=== PATIENT | female | born 2000 | race Caucasian/White ===

== ENCOUNTER 2019-06-12 12:15 | Emergency (ER) | payer BC ==
[2019-06-12 12:32] VITALS: BP 118/82
--- NOTE | 2019-06-12 12:55 | UC ---
Throat Pain/Nasal Gt HPI - HPI Summary HPI Summary: sore throat x 3 days pain is 4 out of 10 , worse with eating , better with rest, Tylenol + bilateral ear pain , nasal congestion , dry cough no fever, no chills - History of Current Complaint Chief Complaint: UCGeneralIllness Stated Complaint: SORE THROAT BILATERAL EAR Time Seen by Provider: 06/12/19 12:29 Hx Obtained From: Patient Hx Last Menstrual Period: 05/2019 ?: No Onset/Duration: Gradual Onset, Lasting Days - 3, Still Present Severity: Moderate Pain Intensity: 4 Cough: Nonproductive Associated Signs & Symptoms: Positive: Nasal Discharge. Negative: Dysphagia, FB Sensation, Drooling, Wheezing, Hoarseness, Sinus Discomfort, Fever, Vomiting , Rash - Allergies/Home Medications Allergies/Adverse Reactions: Allergies Allergy/AdvReac Type Severity Reaction Status Date / Time No Known Allergies Allergy Verified 06/12/19 12:29 Home Medications: Home Medications Control Pill 1 tab PO DAILY 06/12/19 [History Confirmed 06/12/19] Multivitamin [Multiple Vitamins] 1 each PO DAILY 06/12/19 [History Confirmed 07/21] metFORMIN* [Glucophage 500 MG TAB *] 500 mg PO BID 06/12/19 [History Confirmed 06/12/19] PMH/Surg Hx/FS Hx/Imm Hx Previously Healthy: Yes - Surgical History Surgical History: Yes Surgery Procedure, Year, and Place: colonoscopy. endoscopy - Family History Known Family History: Positive: Non-Contributory - Social History Alcohol Use: None Substance Use Type: None Smoking Status (MU): Never Smoked Tobacco Review of Systems All Other Systems Reviewed And Are Negative: Yes Constitutional: Positive: Negative Skin: Positive: Negative Eyes: Positive: Negative ENT: Positive: Sore Throat Respiratory: Positive: Cough Cardiovascular: Positive: Negative Genitourinary: Positive: Negative Motor: Positive: Negative Physical Exam Triage Information Reviewed: Yes Appearance: Well-Appearing, No Pain Distress, Obese Vital Signs: Initial Vital Signs Temp 98.1 F 06/12/19 12:29 Pulse 78 06/12/19 12:29 Resp 16 06/12/19 12:29 BP 118/82 06/12/19 12:29 Pulse Ox 98 06/12/19 12:29 Vital Signs Reviewed: Yes Eye Exam: Normal Eyes: Positive: Conjunctiva Clear ENT: Positive: Normal ENT inspection, Hearing grossly normal, Pharynx normal, Nasal congestion, TMs normal. Negative: Nasal drainage, TM bulging, TM dull, TM red, Tonsillar swelling, Tonsillar exudate Neck: Positive: Supple, Nontender, No Lymphadenopathy Respiratory: Positive: Chest non-tender, Lungs clear, Normal breath sounds Cardiovascular: Positive: RRR, No Murmur, Pulses Normal Abdominal Exam: Normal Abdomen Description: Positive: Nontender, Soft. Negative: CVA Tenderness (R), CVA Tenderness (L), Distended, Guarding Skin Exam: Normal Throat Pain/Nasal Course/Dx - Differential Dx/Diagnosis Provider Diagnosis: URI (upper respiratory infection) Discharge ED - Sign-Out/Discharge Documenting (check all that apply): Patient Departure All imaging exams completed and their final reports reviewed: No Studies - Discharge Plan Condition: Stable Disposition: HOME Patient Education Materials: Upper Respiratory Infection (DC) Forms: *School Release Referrals: Non Staff,Doctor [Primary Care Provider] - If Needed - Billing Disposition and Condition Condition: STABLE Disposition: Home
== END 2019-06-12 12:53 | disposition home or self-care (01) ==
LOC: UCCORT 12:15
DX: J06.9 Acute upper respiratory infection, unspecified (principal); H92.03 Otalgia, bilateral
CPT/HCPCS: 87651; 99201; G0463

== ENCOUNTER 2019-07-20 12:00 | Emergency (ER) | payer BC ==
[2019-07-20 12:50] VITALS: BP 108/66
[2019-07-20] MEDS ORDERED: predniSONE TAB* 20 MG PO ONE (12:56)
--- NOTE | 2019-07-20 12:58 | UC ---
Allergic Reaction HPI - HPI Summary HPI Summary: Took rizatriptan yesterday at 1430. Started to have hives on chest around 1700 and arms. This morning not really on chest, but on legs and lower torso. Itching. Denies difficulty breathing. - History of Current Complaint Chief Complaint: UCRash Stated Complaint: ALLERGIC REACTION Time Seen by Provider: 07/20/19 12:43 Hx Obtained From: Patient Hx Last Menstrual Period: 05/2019 Onset/Duration: Sudden Onset, Lasting Days - 1 Severity Initially: Mild Severity Currently: Mild Pain Intensity: 0 Character: Hives Aggravating Factor(s): Heat Alleviating Factor(s): Cold, Antihistamines Associated Signs And Symptoms: Positive: Rash - Related Hx Possible Reaction To: Medications - Allergies/Home Medications Allergies/Adverse Reactions: Allergies Allergy/AdvReac Type Severity Reaction Status Date / Time rizatriptan Allergy Hives Verified 07/20/19 12:48 Home Medications: Home Medications Rizatriptan Benzoate [Rizatriptan] 10 mg PO SEE INSTRUCTIONS 07/20/19 [History Confirmed 07/20/19] Topiramate TAB(*) [Topamax 25 MG tab] 50 mg PO BID 07/20/19 [History Confirmed 07/20/19] PMH/Surg Hx/FS Hx/Imm Hx Previously Healthy: Yes - Surgical History Surgical History: Yes Surgery Procedure, Year, and Place: colonoscopy. endoscopy - Family History Known Family History: Positive: Respiratory Disease - Social History Alcohol Use: None Substance Use Type: None Smoking Status (MU): Never Smoked Tobacco Review of Systems All Other Systems Reviewed And Are Negative: Yes Skin: Positive: Rash Is Patient Immunocompromised?: No Physical Exam Triage Information Reviewed: Yes Appearance: Well-Appearing, Well-Nourished, Pain Distress Vital Signs: Initial Vital Signs Temp 98.6 F 07/20/19 12:45 Pulse 97 07/20/19 12:45 Resp 16 07/20/19 12:45 BP 108/66 07/20/19 12:45 Pulse Ox 100 07/20/19 12:45 Vital Signs Reviewed: Yes Eye Exam: Normal ENT Exam: Normal Dental Exam: Normal Neck exam: Normal Respiratory Exam: Normal Respiratory: Positive: Chest non-tender, Lungs clear, Normal breath sounds Cardiovascular Exam: Normal Cardiovascular: Positive: RRR, No Murmur, Pulses Normal Abdominal Exam: Normal Bowel Sounds: Positive: Present Musculoskeletal Exam: Normal Neurological Exam: Normal Psychological Exam: Normal Skin: Positive: Other - urticaria all over Allergic Reaction Course/Dx - Course Course Of Treatment: hx obtained, exam performed, meds reviewed, treated for allergic reaction - Differential Dx/Diagnosis Differential Diagnosis/HQI/PQRI: Urticaria Provider Diagnosis: Allergic reaction to drug Discharge ED - Sign-Out/Discharge Documenting (check all that apply): Patient Departure All imaging exams completed and their final reports reviewed: No Studies - Discharge Plan Condition: Stable Disposition: HOME Prescriptions: predniSONE [Prednisone 20 MG TAB] 20 mg PO DAILY #9 tablet Patient Education Materials: Urticaria (ED) Referrals: No Primary Care Phys,NOPCP [Primary Care Provider] - Additional Instructions: 1. cool showers and compresses 2. Hydrocortisone or calamine lotion for itching 3. flush system with clear fluids 4. Take the prednisone as ordered 5. follow up if you develop any Shortness of breath or throat swelling - Billing Disposition and Condition Condition: STABLE Disposition: Home
== END 2019-07-20 13:04 | disposition home or self-care (01) ==
LOC: UCCORT 12:00
DX: L50.9 Urticaria, unspecified (principal); T39.8X5A Adverse effect of other nonopioid analgesics and antipyretics, not elsewhere classified, initial encounter; Y92.9 Unspecified place or not applicable
CPT/HCPCS: 99202; G0463; J7512

== ENCOUNTER 2019-12-02 09:38 | Emergency (ER) | payer BC ==
[2019-12-02 10:05] VITALS: BP 119/68
--- NOTE | 2019-12-02 10:39 | UC ---
Lower Extremity/Ankle HPI - HPI Summary HPI Summary: Pt c/o left ankle pain and swelling that began last night after stepping off outside stairs and mistepping and "twisting left ankle" Pt c/o pain swelling, that worsens with weight bearing. - History of Current Complaint Chief Complaint: UCGeneralIllness Stated Complaint: LEFT ANKLE INJURY Time Seen by Provider: 12/02/19 10:11 Hx Obtained From: Patient Hx Last Menstrual Period: 07/2019 ?: No Onset/Duration: Sudden Onset, Still Present Severity Initially: Moderate Severity Currently: Moderate Pain Intensity: 8 Aggravating Factor(s): Standing, Ambulation Alleviating Factor(s): Rest, Elevation Able to Bear Weight: Yes - painful - Risk Factors Gout Risk Factors: Negative DVT Risk Factors: Negative Septic Arthritis Risk Factor: Negative - Allergies/Home Medications Allergies/Adverse Reactions: Allergies Allergy/AdvReac Type Severity Reaction Status Date / Time rizatriptan Allergy Hives Verified 12/02/19 10:05 Home Medications: Home Medications Multivitamin [Multiple Vitamins] 1 each PO DAILY 06/12/19 [History Confirmed 10/22] Desog-E.estradiol/E.estradiol [Kariva 0.15-0.02/0.01 mg (20/02)] 1 tab PO DAILY 12/02/19 [History Confirmed 12/02/19] PMH/Surg Hx/FS Hx/Imm Hx Previously Healthy: Yes - Surgical History Surgical History: Yes Surgery Procedure, Year, and Place: colonoscopy. endoscopy - Family History Known Family History: Positive: Respiratory Disease - Social History Occupation: Student Lives: With Family Alcohol Use: None Substance Use Type: None Smoking Status (MU): Never Smoked Tobacco Have You Smoked in the Last Year: No - Immunization History Vaccination Up to Date: Yes Review of Systems All Other Systems Reviewed And Are Negative: Yes Constitutional: Positive: Negative Skin: Positive: Negative Eyes: Positive: Negative ENT: Positive: Negative Respiratory: Positive: Negative Cardiovascular: Positive: Negative Gastrointestinal: Positive: Negative Genitourinary: Positive: Negative Motor: Positive: Decreased ROM - left ankle Neurovascular: Positive: Negative Musculoskeletal: Positive: Edema - left ankle swelling, lateral malleolus, Myalgia Neurological/Mental Status: Positive: Negative Psychological: Positive: Negative Is Patient Immunocompromised?: No Physical Exam Triage Information Reviewed: Yes Appearance: Well-Appearing Vital Signs: Initial Vital Signs Temp 98.0 F 12/02/19 09:59 Pulse 78 12/02/19 09:59 Resp 16 12/02/19 09:59 BP 119/68 12/02/19 09:59 Pulse Ox 99 12/02/19 09:59 Vital Signs Reviewed: Yes Eye Exam: Normal ENT Exam: Normal Dental Exam: Normal Neck exam: Normal Respiratory Exam: Normal Respiratory: Positive: No respiratory distress Musculoskeletal: Positive: Edema @ - left lateral malleolus Neurological Exam: Normal Psychological Exam: Normal Skin Exam: Normal Diagnostics - Radiology No standard instances Radiology Interpretation Completed By: Radiologist - negative for fracture Lower Extremity Course/Dx - Differential Dx/Diagnosis Differential Diagnosis/HQI/PQRI: Fracture (Closed), Sprain, Strain Provider Diagnosis: Moderate left ankle sprain Discharge ED - Sign-Out/Discharge Documenting (check all that apply): Patient Departure All imaging exams completed and their final reports reviewed: Yes - Discharge Plan Condition: Stable Disposition: HOME Patient Education Materials: Ankle Sprain (ED) Referrals: Chano Marsh PA [Primary Care Provider] - If Needed Demetrius Mccann MD [Medical Doctor] - If Needed - Billing Disposition and Condition Condition: STABLE Disposition: Home
== END 2019-12-02 11:01 | disposition home or self-care (01) ==
LOC: UCCORT 09:38
DX: S93.402A Sprain of unspecified ligament of left ankle, initial encounter (principal); Z88.8 Allergy status to other drugs, medicaments and biological substances; X50.1XXA Overexertion from prolonged static or awkward postures, initial encounter; Y92.9 Unspecified place or not applicable
CPT/HCPCS: 99212; G0463